=== PATIENT | male | born 1980 | race Two or more races ===

== ENCOUNTER → 2019-05-12 | Outpatient (CLI) | payer OTHER ==
[~2019-05-12] MED LIST: HYDACE5 PO; NAPR500 PO; TRAZ50 PO
== END | disposition home or self-care (01) ==
LOC: LAB SHORT 14:46 → OLS 14:46 → LAB FUT 04-12 13:05
PROVIDERS: Internal Medicine
DX: R63.5 Abnormal weight gain (principal)
CPT/HCPCS: 81050